=== PATIENT | male | born 1945 | race Caucasian/White ===

== ENCOUNTER 2018-11-06 08:23 | Day surgery (SDC) | payer MEDICARE ==
[~2018-11-06 08:23] MED LIST: EPINEPHrine 0.3 MG in Ophthalmic Irrigation Solution 500 ML IVP SCH; Fentanyl 100 MCG/2 ML VIAL ONE; Midazolam HCl 2 mg/2 ml Vial ONE; PROPOFOL 20 ML ONE
[2018-11-06] MEDS ORDERED: Phenylephrine 2.5% Ophth Soln 5 ML BOT ONE (08:33)
[2018-11-06] MEDS ORDERED: Cyclopentolate 1% Opth Drop 2 ML BOT ONE (08:33)
[2018-11-06] MEDS ORDERED: Lidocaine 4% PF 5 ML AMP ONE (14:43)
[2018-11-06] MEDS ORDERED: CEFAZOLIN 1 GM VIAL ONE (14:43)
[2018-11-06] MEDS ORDERED: Triamcinolone 40 MG/ML VIAL ONE (14:43)
[2018-11-06] MEDS ORDERED: PROPOFOL 200 MG/20 ML VIAL ONE (14:43)
[2018-11-06] MEDS ORDERED: Lidocaine 1% PF 5 ML VIAL ONE (14:43)
[2018-11-06] MEDS ORDERED: Bupivacaine 10 ML VIAL ONE (14:43)
[2018-11-06] MEDS ORDERED: diphenhydrAMINE 50 MG/ML VIAL ONE (14:43)
[2018-11-06] MEDS ORDERED: Maxitrol 0.1% Opth Oint 3.5 GM TUBE ONE (14:43)
[2018-11-06] MEDS ORDERED: Indocyanine Green 25 MG/10 ML VIAL ONE (14:43)
--- NOTE | 2018-11-06 17:28 | OP ---
DATE OF PROCEDURE: 11/06/2018 PRINCIPAL PREOPERATIVE DIAGNOSIS: Epiretinal membrane, right eye. POSTOPERATIVE DIAGNOSIS: Epiretinal membrane, right eye. PROCEDURES PERFORMED: 1. 25-gauge pars plana vitrectomy, right eye. 2. Epiretinal membrane/internal limiting membrane removal, right eye. ESTIMATED BLOOD LOSS: None. SPECIMENS REMOVED: None. COMPLICATIONS: None. ANESTHESIA: MAC with retrobulbar block. DESCRIPTION OF PROCEDURE: The patient was identified in the preoperative holding area, where the correct eye being the right eye was marked for surgery. The patient was taken to the operating room, where MAC anesthesia was induced. A retrobulbar block was administered to the right eye. The block consisted of 1:1 ratio of 2% lidocaine and 0.75% Marcaine. A total of 5 mL was administered. The right eye was then prepped and draped in the usual sterile ophthalmic fashion for surgery. A wire lid speculum was placed. A standard 25-gauge pars plana vitrectomy platform was fashioned with trocars placed approximately 4 mm from the limbus. The infusion was noted to be within the vitreous cavity prior to being turned on to an infusion pressure of 30 mmHg. The light pipe Micro vitrector was introduced into the eye under visualization with a BIOM viewing system. A careful core and peripheral shave vitrectomy was performed. Following vitrectomy, ICG dye was used to stain the internal limiting membrane. Using the Yves ILM Forceps, an internal limiting membrane/epiretinal membrane complex peel was performed in a circumferential fashion about the fovea. The peel extended approximately 2 disc diameters in radius around the fovea. Following peeling, the Micro vitrector was re-introduced into the eye to remove any residual vitreous debris. A 360-degree scleral depressed exam of the periphery revealed no defects. All cannulas were sequentially removed, and all sclerotomies were noted to be watertight. Subconjunctival Ancef and Kenalog were injected. The wire lid speculum was removed followed by application of Tobradex ophthalmic ointment and light patch and shield. The patient tolerated the procedure well and was taken to the outpatient recovery area in good condition. Job ID: [id number]
== END 2018-11-06 12:20 | disposition home or self-care (01) ==
LOC: SDC 08:23
PROVIDERS: ATTEND Ophthalmology Retina Specialist
PROC: 08T43ZZ Resection of Right Vitreous, Percutaneous Approach (ICD-10-PCS; principal; 2018-11-06)
PROC: 08NE3ZZ Release Right Retina, Percutaneous Approach (ICD-10-PCS; 2018-11-06)
DX: H35.371 Puckering of macula, right eye (principal); Z88.8 Allergy status to other drugs, medicaments and biological substances; Z91.012 Allergy to eggs
CPT/HCPCS: J0171; J2250; J2704; J3010